=== PATIENT | female | born 1965 | race Caucasian/White ===

== ENCOUNTER → 2021-01-07 | Outpatient (CLI) | payer BC ==
[~2021-01-07] MED LIST: IMITREX100 MG PO; LIPITOR 20 MG T20 M1 PO; OMEPRAZOLE 20 M20 M1 PO; TOPAMAX50 MG PO
[2021-01-07 10:35] VITALS: BP 118/73
[2021-01-07 11:55] VITALS: BP 118/76
--- NOTE | 2021-01-07 12:22 | NUR ---
IN FOR 1ST INJECTAFER INFUSION FOR IRON DEFICIENCY ANEMIA. TRANSFUSED PATIENT LAST WEDNESDAY AND PATIENT STATED NOT FEELING WEAK OR SOB. IV PLACED IN LEFT AC AND INFUSED INJECTAFER OVER 30 MINUTES. TOLERATED WELL. OBSERVED FOR 30 MINUTES WITH NO REACITON NOTED. POST BP GOOD. SCHEDULED TO RETURN NEXT WEDNESDAY FOR HER 2ND INFUSION. DISMISSED IN GOOD CONDITION.
== END ==
LOC: OPONC 09:07
PROVIDERS: ATTEND Nurse Practitioner
DX: D50.0 Iron deficiency anemia secondary to blood loss (chronic) (principal); K90.49 Malabsorption due to intolerance, not elsewhere classified
CPT/HCPCS: 95000

== ENCOUNTER → 2021-01-14 | Outpatient (CLI) | payer BC ==
[2021-01-14 10:26] VITALS: BP 128/65
[2021-01-14 12:13] VITALS: BP 129/74
--- NOTE | 2021-01-14 13:40 | NUR ---
IN FOR 2ND INJECTAFER INFUSION FOR IRON DEFICIENCY ANEMIA. STATED HAD NO SIDE EFFECTS FROM 1ST INFUSION LAST WEDNESDAY AND SHE IS NOT SHORT OF BREATH OR WEAK. IV PLACED IN LAC AND TOLERATED INFUSION WITHOUT INCIDENT. OBSERVED FOR 30 MINUTES. POST BP NORMAL. REMOVED IV AND DISMISSED IN STABLE CONDITION. TO FOLLOW UP WITH SONIA RODRIGUEZ NP TO SEE WHEN SHE NEEDS HER LABS CHECKED AGAIN.
== END ==
LOC: OPONC 10:46
PROVIDERS: ATTEND Nurse Practitioner
DX: D50.0 Iron deficiency anemia secondary to blood loss (chronic) (principal)
CPT/HCPCS: 95000